=== PATIENT | female | born 1980 | race Caucasian/White ===

== ENCOUNTER 2018-05-14 08:39 | Observation (INO) | payer OTHER ==
--- NOTE | 2018-05-14 09:06 | ED PDOC ---
Syncope/Near Syncope/Dizziness Time Seen by Provider: 05/14/18 08:45 Chief Complaint (Nursing): Syncope History Per: Patient Onset/Duration Of Symptoms: Hrs (1) Current Symptoms Are (Timing): Better Activity At Onset Of Symptoms: Standing Associated Symptoms Preceding Syncopal Episode: Lightheadedness Seizure Or Post-ictal Symptoms: None Fall Associated With With Symptoms: Yes, Positive Injury Additional Complaint(s): Syncopal episode preceded by dizziness/lightheadedness. Fell and hit right side of head. Unknkown duration. Denies chest pain or palpitations. No focal weakness or parasthesias. Did not eat breakfast this AM but had chocolate when feeling dizzy. Past Medical History Vital Signs: Last Vital Signs Temp 98.7 F 05/14/18 08:41 Pulse 51 L 05/14/18 08:54 Resp 16 05/14/18 08:54 BP 108/56 L 05/14/18 08:54 Pulse Ox 100 05/14/18 08:54 - Medical History PMH: Anemia Other PMH: Heart murmur as child - Family History Family History: States: Unknown Family Hx - Allergies Allergies/Adverse Reactions: Allergies Allergy/AdvReac Type Severity Reaction Status Date / Time Unobtainable Allergy Verified 05/14/18 08:46 Review of Systems ROS Statement: Except As Marked, All Systems Reviewed And Found Negative Neurological: Positive for: Dizziness, Other (Syncope) Physical Exam - Reviewed Nursing Documentation Reviewed: Yes Vital Signs Reviewed: Yes - Physical Exam Appears: Positive for: Non-toxic, No Acute Distress Head Exam: Positive for: ATRAUMATIC, NORMAL INSPECTION, NORMOCEPHALIC Skin: Positive for: Normal Color, Warm, DRY Eye Exam: Positive for: EOMI, Normal appearance, PERRL ENT: Positive for: Normal ENT Inspection Neck: Positive for: Normal, Painless ROM Cardiovascular/Chest: Positive for: Regular Rate, Rhythm Respiratory: Positive for: CNT, Normal Breath Sounds Gastrointestinal/Abdominal: Positive for: Normal Exam, Soft Back: Positive for: Normal Inspection Extremity: Positive for: Normal ROM Neurologic/Psych: Positive for: Alert, Oriented. Negative for: Motor/Sensory Deficits - Laboratory Results Result Diagrams: 05/14/18 09:29 05/14/18 09:29 - ECG O2 Sat by Pulse Oximetry: 100 Disposition - Clinical Impression Clinical Impression: Syncope, Bradycardia - Patient ED Disposition Is Patient to be Admitted: Yes - Disposition Disposition Time: 10:40 Condition: FAIR Forms: [facility] ([place]an) - Pt Status Changed To: Hospital Disposition Of: Observation - POA Present On Arrival: None
[2018-05-14 09:43] LABS: BASO % 0.9 % (0.0-2.0); EOS # 0.1 K/uL (0.0-0.7); EOS % 2.1 % (0.0-4.0); HEMOGLOBIN 13.7 g/dL (12.0-16.0); LYMPH % 36.1 % (20.0-40.0); MEAN CELL VOLUME 86.1 fl (81.0-99.0); MEAN CORPUSCULAR HEMOGLOBIN 29.1 pg (27.0-31.0); MEAN CORPUSCULAR HGB CONC 33.8 g/dL (33.0-37.0); MEAN PLATELET VOLUME 8.5 fl (7.2-11.7); MONO # 0.7 K/uL (0.0-0.8); MONO % 12.1 % (0.0-10.0); NEUT # 2.7 K/uL (1.8-7.0); NEUT % 48.8 % (50.0-75.0); NRBC % 0.2 % (0.0-0.0); RBC 4.7 Mil/uL (3.80-5.20); RED CELL DISTRIBUTION WIDTH 14.3 % (11.5-14.5); WHITE BLOOD COUNT 5.5 K/uL (4.8-10.8)
[2018-05-14 09:56] LABS: ALB/GLOB RATIO 1.4 (1.0-2.1); ALBUMIN 4.6 g/dL (3.5-5.0); CALCIUM 9.1 mg/dL (8.4-10.2); GFR AFRICAN-AMERICAN > 60; GFR NON-AFRICAN AMERICAN > 60
[2018-05-14 09:59] LABS: BLOOD UREA NITROGEN 16 mg/dl (7-17)
[2018-05-14 10:00] LABS: ALT/SGPT 17 U/L (9-52); AST/SGOT 24 U/L (14-36)
--- NOTE | 2018-05-14 10:34 | CT ---
Date of service: 05/14/2018 PROCEDURE: CT HEAD WITHOUT CONTRAST. HISTORY: Syncope COMPARISON: None available. TECHNIQUE: Axial computed tomography images were obtained through the head/brain without intravenous contrast. Radiation dose: Total exam DLP = 761 mGy-cm. This CT exam was performed using one or more of the following dose reduction techniques: Automated exposure control, adjustment of the mA and/or kV according to patient size, and/or use of iterative reconstruction technique. FINDINGS: HEMORRHAGE: No intracranial hemorrhage. BRAIN: No mass effect or edema. No atrophy or chronic microvascular ischemic changes. VENTRICLES: Unremarkable. No hydrocephalus. CALVARIUM: Unremarkable. PARANASAL SINUSES: Unremarkable as visualized. No significant inflammatory changes. MASTOID AIR CELLS: Unremarkable as visualized. No inflammatory changes. OTHER FINDINGS: None. IMPRESSION: Normal CT of the Head.
--- NOTE | 2018-05-15 01:36 | CON ---
DATE: 05/14/2018 CARDIOLOGY CONSULTATION REASON FOR CONSULTATION: Syncopal episode. HISTORY OF PRESENT ILLNESS: The patient is a 37-year-old female who has no past medical history except for allergy, and she is taking Zyrtec one tablet daily. 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 The patient says that she was going back to her seat and felt dizzy and collapse and does not recall the fall and when she was on the floor except when her co-workers were trying to communicate with her. The patient did bruise her right lower lip and is unaware of any witnessed seizure activity by the surrounding people. There was no tongue biting or urinary incontinence. The patient has no prior similar episode and denies any history of palpitation. SOCIAL HISTORY: Nonsmoker and nondrinker. She is single. Has no children. MENSTRUAL HISTORY: Last menstrual period was 04/29/2018. MEDICATIONS: Tylenol 650 mg every 6 hours p.r.n. for headache. PHYSICAL EXAMINATION: GENERAL: The patient is a young middle-aged female who does not appear to be in any distress. VITAL SIGNS: Blood pressure 111/66, hear rate 68, temperature 98.7, respirations 18. HEENT: Right lower lip bruising. NECK: No JVD. CHEST: Clear. HEART: S1, S2 are regular. ABDOMEN: Soft. EXTREMITIES: No edema. LABORATORY DATA: SMA-7 is within normal limit except for creatinine of 0.5. One set troponin is negative. TSH level is within normal limits. Hemoglobin, hematocrit, white count, and platelet count are within normal limit. Head CT scan without contrast, normal study. EKG reveals sinus bradycardia at the rate of 48. ASSESSMENT: 1. Syncopal episode. 2. Mild sinus bradycardia. RECOMMENDATIONS: Obtain an echocardiogram, urine drug screen, D-dimer, and urine test. Bulmaro Nelson MD
[2018-05-15 05:39] LABS: BASO % 0.9 % (0.0-2.0); EOS # 0.1 K/uL (0.0-0.7); EOS % 2.1 % (0.0-4.0); HEMOGLOBIN 13.8 g/dL (12.0-16.0); MEAN CELL VOLUME 85.7 fl (81.0-99.0); MEAN CORPUSCULAR HGB CONC 33.9 g/dL (33.0-37.0); MEAN PLATELET VOLUME 8.7 fl (7.2-11.7); MONO # 0.6 K/uL (0.0-0.8); MONO % 11.4 % (0.0-10.0); NEUT # 2.6 K/uL (1.8-7.0); NEUT % 48.6 % (50.0-75.0); NRBC % 0.1 % (0.0-0.0); RBC 4.76 Mil/uL (3.80-5.20); RED CELL DISTRIBUTION WIDTH 14.2 % (11.5-14.5); WHITE BLOOD COUNT 5.4 K/uL (4.8-10.8)
[2018-05-15 12:40] LABS: BLOOD UREA NITROGEN 17 mg/dl (7-17); CALCIUM 9.4 mg/dL (8.4-10.2); GFR AFRICAN-AMERICAN > 60; GFR NON-AFRICAN AMERICAN > 60
--- NOTE | 2018-05-15 14:35 | CARD ---
APPROVED REPORT Date of service: 05/14/2018 EXAM: Two-dimensional and M-mode echocardiogram with Doppler and color Doppler. Other Information Quality : GoodRhythm : NSR INDICATION Abnormal EKG/Arrhythmia Bradycardia 2D DIMENSIONS IVSd0.88 (0.7-1.1cm)LVDd3.93 (3.9-5.9cm) LVOT Diameter1.91 (1.8-2.4cm)PWd0.75 (0.7-1.1cm) IVSs0.99 (0.8-1.2cm)LVDs3.03 (2.5-4.0cm) FS (%) 22.8 %PWs0.85 (0.8-1.2cm) M-Mode DIMENSIONS Left Atrium (MM)3.66 (2.5-4.0cm)Aortic Root2.65 (2.2-3.7cm) Aortic Cusp Exc.2.01 (1.5-2.0cm) Aortic Valve AoV Peak Guyozorq053.8cm/sAoV VTI29.3cmAO Peak GR.7mmHg LVOT Peak Obcspmvf87.3cm/sLVOT VTI20.13cmAO Mean GR.5mmHg GAY (VMAX)1.45gs1AFR (VTI)1.26ab1HE P 1/2 Ldip3060cw Mitral Valve MV E Xxkuecss84.0cm/sMV DECEL CEVW863sgZU A Pzpthydr15.7cm/s MV ATX20fcO/A ratio1.6MVA (PHT)3.03cm2 TDI Lateral E' Peak V13.53cm/sMedial E' Peak V10.19cm/sE/Lateral E'5.2 E/Medial E'6.9 Pulmonary Valve PV Peak Btymavuc96.4cm/s Tricuspid Valve TR Peak Wqbdongg911jd/sRAP KCEMHWHA55duWyPJ Peak Gr.16mmHg QPKC06dvNn LEFT VENTRICLE The left ventricle is normal size. There is normal left ventricular wall thickness. There is an abnormality on the muscular septal wall that it can not be identify. 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 It looks to be affecting the aortic valve since there is evidence of mild Aortic regurgitation. Intra-Esophageal Echocardiogram is recommended for further investigation of above abnormality. The left ventricular function is normal. The left ventricular ejection fraction is within the normal range. LVEF 65% There is normal LV segmental wall motion. The left ventricular diastolic function is normal. No left ventricle thrombus noted on this study. There is no ventricular septal defect visualized. There is no left ventricular aneurysm. There is no mass noted in the left ventricle. RIGHT VENTRICLE The right ventricle is normal size. There is normal right ventricular wall thickness. The right ventricular systolic function is normal. ATRIA The left atrium size is normal. The right atrium size is normal. The interatrial septum is intact with no evidence for an atrial septal defect. AORTIC VALVE The aortic valve is thickened but opens well. There is mild aortic regurgitation. There is no aortic valvular stenosis. There is no aortic valvular vegetation. MITRAL VALVE The mitral valve is normal in structure. There is no evidence of mitral valve prolapse. There is no mitral valve stenosis. There is no mitral valve regurgitation noted. TRICUSPID VALVE The tricuspid valve is normal in structure. There is no tricuspid valve regurgitation noted. There is no tricuspid valve prolapse or vegetation. There is no tricuspid valve stenosis. PULMONIC VALVE The pulmonary valve is normal in structure. There is no pulmonic valvular regurgitation. There is no pulmonic valvular stenosis. GREAT VESSELS The aortic root is normal in size. The IVC is normal in size and collapses >50% with inspiration. PERICARDIAL EFFUSION The pericardium appears normal. There is no pleural effusion. <Conclusion> The left ventricle is normal size. There is normal left ventricular wall thickness. There is an abnormality on the muscular septal wall that it can not be identify. 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 It looks like it could be affecting the aortic valve since there is evidence of mild Aortic regurgitation. Intra-Esophageal Echocardiogram is recommended for further investigation of above abnormality. The left ventricular function is normal. The left ventricular ejection fraction is within the normal range. LVEF 65% There is mild aortic regurgitation.
--- NOTE | 2018-05-15 15:14 | CARD ---
APPROVED REPORT Date of service: 05/14/2018 EKG Measurement Heart [id number] MS [id number] <Conclusion> Sinus bradycardia Otherwise normal ECG
[2018-05-15 15:16] LABS: BARBITURATES, UR NEGATIVE (NEGATIVE); BENZODIAZEPINES, UR NEGATIVE (NEGATIVE); OPIATES, UR NEGATIVE (NEGATIVE); PHENCYCLIDINE, UR NEGATIVE (NEGATIVE)
--- NOTE | 2018-05-15 16:46 | PN ---
DATE: 05/15/2018 SUBJECTIVE: The patient denies any dizziness or palpitation. No reported significant bradycardia on the telemetry monitoring. PHYSICAL EXAMINATION: VITAL SIGNS: Blood pressure 96/61, heart rate 64, temperature 98.3, and respirations 18. HEENT: Normocephalic. CHEST: Clear. HEART: S1 and S2 regular. ABDOMEN: Soft. EXTREMITIES: No edema. ASSESSMENT: 1. Syncopal episode. 2. Mild sinus bradycardia. RECOMMENDATIONS: Continue current telemetry monitoring. I reviewed the echocardiographic study performed today. The patient can be scheduled for an ambulatory 24 hours Holter monitor as an outpatient. Bulmaro Nelson MD
[2018-05-15 17:11] LABS: PARTIAL THROMBOPLASTIN TIME 34.5 Seconds (25.6-37.1); PROTHROMBIN TIME 10.6 Seconds (9.8-13.1)
--- NOTE | 2018-05-15 18:31 | RAD ---
Date of service: 05/15/2018 HISTORY: Syncope COMPARISON: No prior. TECHNIQUE: Chest PA and lateral FINDINGS: LUNGS: No acute infiltrate identified bilaterally. Linear atelectasis or possible fibrosis question in the bilateral bases. PLEURA: No significant pleural effusion identified. No pneumothorax apparent. CARDIOVASCULAR: Normal. OSSEOUS STRUCTURES: No significant abnormalities. VISUALIZED UPPER ABDOMEN: Normal. OTHER FINDINGS: None. IMPRESSION: No acute infiltrate, pleural effusion or pneumothorax identified bilaterally. No acute cardiovascular changes appreciated. Questionable by a basilar fibrosis or linear atelectasis.
[2018-05-15 23:59] VITALS: RESP 18
--- NOTE | 2018-05-16 07:09 | CP.PCM.HP ---
History of Present Illness - History of Present Illness History of Present Illness: CC: Syncope HPI: A 37yoF with H/O Allergic Reaction and on and off Palpitation was at work whne she passed out. Syncopal episode preceded by dizziness/lightheadedness. Fell and hit right side of head. Unknown duration. Denies chest pain or palpitations prior to the Collapse. No focal weakness or parasthesias. Did not eat breakfast this AM but had chocolate when feeling dizzy. Injury to the Lip but denies bite to tongue or Incontinence. No prior episode of syncope. Present on Admission - Present on Admission Any Indicators Present on Admission: No Review of Systems - Review of Systems All systems: reviewed and no additional remarkable complaints except Past Patient History - Past Medical History & Family History Past Medical History?: Yes Pertinent Family History: Family H/O Cardiac Disease - Past Social History Smoking Status: Former Smoker Alcohol: None Drugs: Denies - CARDIAC Hx Cardiac Disorders: Yes Hx Heart Murmur: Yes (congenital) Other/Comment: Irregular heart beat 2006 - PULMONARY Hx Respiratory Disorders: No - NEUROLOGICAL Hx Neurological Disorder: No - HEENT Hx HEENT Problems: No - RENAL Hx Chronic Kidney Disease: No - ENDOCRINE/METABOLIC Hx Endocrine Disorders: No - HEMATOLOGICAL/ONCOLOGICAL Hx Blood Disorders: Yes Hx AIDS: No Hx Anemia: Yes Hx Human Immunodeficiency Virus (HIV): No - INTEGUMENTARY Hx Dermatological Problems: No - MUSCULOSKELETAL/RHEUMATOLOGICAL Hx Musculoskeletal Disorders: No Hx Falls: No - GASTROINTESTINAL Hx Gastrointestinal Disorders: Yes Hx Hemorrhoids: Yes (External) Other/Comment: Colonoscopy NOV 2016 - GENITOURINARY/GYNECOLOGICAL Hx Genitourinary Disorders: No - PSYCHIATRIC Hx Psychophysiologic Disorder: No Hx Substance Use: No - SURGICAL HISTORY Hx Surgeries: Yes Hx Tonsillectomy: Yes (Age 13 yrs old) Other/Comment: RIGHT MIDDLE FINGER BENIGN TUMOR REMOVE 2008 - ANESTHESIA Hx Anesthesia: Yes Hx Anesthesia Reactions: No Hx Malignant Hyperthermia: No Has any member of the family had a problem w/ anesthesia?: No Meds Allergies/Adverse Reactions: Allergies Allergy/AdvReac Type Severity Reaction Status Date / Time No Known Allergies Allergy Verified 05/14/18 10:43 Physical Exam - Constitutional Appears: Well, No Acute Distress - Head Exam Head Exam: ATRAUMATIC, NORMAL INSPECTION, NORMOCEPHALIC - Eye Exam Eye Exam: EOMI, Normal appearance, PERRL Pupil Exam: NORMAL ACCOMODATION, PERRL - ENT Exam ENT Exam: Mucous Membranes Moist, Normal Exam - Neck Exam Neck exam: Positive for: Full Rom, Normal Inspection - Respiratory Exam Respiratory Exam: Clear to Auscultation Bilateral, NORMAL BREATHING PATTERN - Cardiovascular Exam Cardiovascular Exam: REGULAR RHYTHM, RRR, +S1, +S2 - GI/Abdominal Exam GI & Abdominal Exam: Normal Bowel Sounds, Soft. absent: Tenderness - Extremities Exam Extremities exam: Positive for: full ROM, normal capillary refill, normal inspection - Back Exam Back exam: FULL ROM, NORMAL INSPECTION - Neurological Exam Neurological exam: Alert, CN II-XII Intact, Normal Gait, Oriented x3, Reflexes Normal - Psychiatric Exam Psychiatric exam: Normal Affect, Normal Mood - Skin Skin Exam: Dry, Intact, Normal Color, Warm Results - Vital Signs Recent Vital Signs: Last Vital Signs Temp 98.1 F 05/16/18 04:50 Pulse 61 05/16/18 04:50 Resp 18 05/16/18 04:50 BP 97/65 L 05/16/18 04:50 Pulse Ox 98 05/16/18 04:50 - Labs Result Diagrams: 05/15/18 04:55 05/15/18 11:21 Labs: Laboratory Results - last 24 hr 05/14/18 05/15/18 05/15/18 08:53 11:21 15:00 PT INR APTT Sodium 137 Potassium 4.1 Chloride 104 Carbon Dioxide 22 Anion Gap 15 BUN 17 Creatinine 0.5 L Est GFR ( Amer) > 60 Est GFR (Non-Af Amer) > 60 POC Glucose (mg/dL) 90 Random Glucose 84 Calcium 9.4 Urine Opiates Screen Negative Urine Methadone Screen Negative Ur Barbiturates Screen Negative Ur Phencyclidine Scrn Negative Ur Amphetamines Screen Negative U Benzodiazepines Scrn Negative U Oth Cocaine Metabols Negative U Cannabinoids Screen Negative 05/15/18 16:06 PT 10.6 INR 1.0 APTT 34.5 Sodium Potassium Chloride Carbon Dioxide Anion Gap BUN Creatinine Est GFR ( Amer) Est GFR (Non-Af Amer) POC Glucose (mg/dL) Random Glucose Calcium Urine Opiates Screen Urine Methadone Screen Ur Barbiturates Screen Ur Phencyclidine Scrn Ur Amphetamines Screen U Benzodiazepines Scrn U Oth Cocaine Metabols U Cannabinoids Screen - EKG Data EKG Interpreted by: Myself EKG shows normal: Sinus rhythm, Intervals, QRS complexes, ST-T waves Rate: Bradycardia - Imaging and Cardiology CT scan - head Status: Report reviewed by me Additional comment: Normal Study Assessment & Plan (1) Syncope Assessment and Plan: Mild Sinus Beadycardia Strong Family H/o Cardiac Disease Echo Pending Serial Trop and EKG Telemonitoring TSH Cardiology Consult Status: Acute Priority: Medium
--- NOTE | 2018-05-16 07:29 | CP.PCM.PN ---
Subjective - Date & Time of Evaluation Date of Evaluation: 05/15/18 Time of Evaluation: 15:00 - Subjective Subjective: Seen and examined at the bed side. No New complaint. Agent Broker Reviewed the Echocardiogram and confirmed by official Result of possible Aneurysm, and patient going to [facility] for [facility] tomorrow Objective - Vital Signs/Intake and Output Vital Signs (last 24 hours): Temp Pulse Resp BP Pulse Ox 98.1 F 61 18 97/65 L 98 05/16/18 04:50 05/16/18 04:50 05/16/18 04:50 05/16/18 04:50 05/16/18 04:50 - Medications Medications: Current Medications Acetaminophen (Tylenol 325mg Tab) 650 mg PO Q6 PRN PRN Reason: headache Last Admin: 05/14/18 13:47 Dose: 650 mg - Labs Labs: 05/15/18 04:55 05/15/18 11:21 PT 10.6 Seconds (9.8-13.1) 05/15/18 16:06 INR 1.0 (0.9-1.2) 05/15/18 16:06 APTT 34.5 Seconds (25.6-37.1) 05/15/18 16:06 - Skin Additional comments: TTE: Mild aortic Regurgitation Septal Aneurysm Normal EF Assessment and Plan (1) Syncope Assessment & Plan: Possible Septal Aneurysm Mild Aortic Valve Regurgitation Patient Agreed to go fot [facility] at [facility] NPO past midnight D/w the Agent Broker Status: Acute
[2018-05-16 16:01] VITALS: BP 102/66; PULSE 76; TEMP 97.9; O2SAT 98
--- NOTE | 2018-05-16 18:34 | CP.PCM.DIS ---
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 Priority: Low Comment: Advised stocking Hospital Course - Lab Results Lab Results: Most Recent Lab Values WBC 5.4 K/uL (4.8-10.8) 05/15/18 04:55 RBC 4.76 Mil/uL (3.80-5.20) 05/15/18 04:55 Hgb 13.8 g/dL (12.0-16.0) 05/15/18 04:55 Hct 40.8 % (34.0-47.0) 05/15/18 04:55 MCV 85.7 fl (81.0-99.0) 05/15/18 04:55 MCH 29.0 pg (27.0-31.0) 05/15/18 04:55 MCHC 33.9 g/dL (33.0-37.0) 05/15/18 04:55 RDW 14.2 % (11.5-14.5) 05/15/18 04:55 Plt Count 243 K/uL (130-400) 05/15/18 04:55 MPV 8.7 fl (7.2-11.7) 05/15/18 04:55 Neut % (Auto) 48.6 % (50.0-75.0) L 05/15/18 04:55 Lymph % (Auto) 37.0 % (20.0-40.0) 05/15/18 04:55 Garvin % (Auto) 11.4 % (0.0-10.0) H 05/15/18 04:55 Eos % (Auto) 2.1 % (0.0-4.0) 05/15/18 04:55 Baso % (Auto) 0.9 % (0.0-2.0) 05/15/18 04:55 Neut # (Auto) 2.6 K/uL (1.8-7.0) 05/15/18 04:55 Lymph # (Auto) 2.0 K/uL (1.0-4.3) 05/15/18 04:55 Garvin # (Auto) 0.6 K/uL (0.0-0.8) 05/15/18 04:55 Eos # (Auto) 0.1 K/uL (0.0-0.7) 05/15/18 04:55 Baso # (Auto) 0.0 K/uL (0.0-0.2) 05/15/18 04:55 PT 10.6 Seconds (9.8-13.1) 05/15/18 16:06 INR 1.0 (0.9-1.2) 05/15/18 16:06 APTT 34.5 Seconds (25.6-37.1) 05/15/18 16:06 D-Dimer, Quantitative 69 ng/mlDDU (0-230) 05/14/18 15:50 Sodium 137 mmol/l (132-148) 05/15/18 11:21 Potassium 4.1 MMOL/L (3.6-5.0) 05/15/18 11:21 Chloride 104 mmol/L (98-107) 05/15/18 11:21 Carbon Dioxide 22 mmol/L (22-30) 05/15/18 11:21 Anion Gap 15 (10-20) 05/15/18 11:21 BUN 17 mg/dl (7-17) 05/15/18 11:21 Creatinine 0.5 mg/dl (0.7-1.2) L 05/15/18 11:21 Est GFR ( Amer) > 60 05/15/18 11:21 Est GFR (Non-Af Amer) > 60 05/15/18 11:21 POC Glucose (mg/dL) 90 mg/dL (65-110) 05/14/18 08:53 Random Glucose 84 mg/dL (65-105) 05/15/18 11:21 Calcium 9.4 mg/dL (8.4-10.2) 05/15/18 11:21 Magnesium 1.8 MG/DL (1.6-2.3) 05/15/18 04:55 Total Bilirubin 1.0 mg/dl (0.2-1.3) 05/14/18 09:29 AST 24 U/L (14-36) 05/14/18 09:29 ALT 17 U/L (9-52) 05/14/18 09:29 Alkaline Phosphatase 40 U/L (38-126) 05/14/18 09:29 Troponin I < 0.0120 ng/mL (0.00-0.120) 05/14/18 20:15 Total Protein 7.8 G/DL (6.3-8.2) 05/14/18 09:29 Albumin 4.6 g/dL (3.5-5.0) 05/14/18 09:29 Globulin 3.2 gm/dL (2.2-3.9) 05/14/18 09:29 Albumin/Globulin Ratio 1.4 (1.0-2.1) 05/14/18 09:29 TSH 3rd Generation 1.98 mIU/ML (0.46-4.68) 05/14/18 11:26 Urine HCG, Qual Negative (NEGATIVE) 05/14/18 17:55 Urine Opiates Screen Negative (NEGATIVE) 05/15/18 15:00 Urine Methadone Screen Negative (NEGATIVE) 05/15/18 15:00 Ur Barbiturates Screen Negative (NEGATIVE) 05/15/18 15:00 Ur Phencyclidine Scrn Negative (NEGATIVE) 05/15/18 15:00 Ur Amphetamines Screen Negative (NEGATIVE) 05/15/18 15:00 U Benzodiazepines Scrn Negative (NEGATIVE) 05/15/18 15:00 U Oth Cocaine Metabols Negative (NEGATIVE) 05/15/18 15:00 U Cannabinoids Screen Negative (NEGATIVE) 05/15/18 15:00 Discharge Exam - Head Exam Head Exam: ATRAUMATIC, NORMAL INSPECTION, NORMOCEPHALIC - Eye Exam Eye Exam: EOMI, Normal appearance, PERRL Pupil Exam: NORMAL ACCOMODATION, PERRL - Cardiovascular Exam Cardiovascular Exam: +S1, +S2 - GI/Abdominal Exam GI & Abdominal Exam: Normal Bowel Sounds - Neurological Exam Neurological exam: Alert, CN II-XII Intact, Normal Gait, Oriented x3, Reflexes Normal - Psychiatric Exam Psychiatric exam: Normal Affect, Normal Mood - Skin Skin Exam: Dry, Intact, Normal Color, Warm Discharge Plan - Follow Up Plan Condition: STABLE Disposition: HOME/ ROUTINE Instructions: Bradycardia (DC), Syncope (Fainting) (DC) Additional Instructions: follow up with pmd in 1 week Referrals: Bulmaro Nelson MD [Staff Provider] - Gerri Orantes MD [Staff Provider] -
== END 2018-05-16 19:23 | disposition home or self-care (01) ==
LOC: EDBD 08:39 → H.ER 08:39 → H.ERHOLD 10:40 → H.TEL 11:26
PROVIDERS: ADMIT Internal Medicine; ATTEND Internal Medicine
DX: R00.1 Bradycardia, unspecified (principal); I95.9 Hypotension, unspecified; E86.0 Dehydration; I83.90 Asymptomatic varicose veins of unspecified lower extremity; Z87.891 Personal history of nicotine dependence
CPT/HCPCS: 36415; 70450; 71046; 80048; 80053; 80324; 80345; 80346; 80349; 80353; 80358; 80361; 81025; 82948; 83735; 83992; 84443; 84484; 84703; 85025; 85378; 85610; 85730; 93005; 93306; 99285; G0378